=== PATIENT | female | born 1970 | race Caucasian/White ===

== ENCOUNTER 2020-06-01 23:51 | Emergency (ER) | payer SELFPAY ==
[2020-06-01 23:51] VITALS: BP 184/84; PULSE 100; RESP 18; TEMP 36.3; O2SAT 100; BMI 43.3
[2020-06-02] VITALS: BP 165/88; PULSE 104; RESP 14; O2SAT 100
[2020-06-02 00:04] VITALS: BP 145/78; PULSE 92; RESP 16; O2SAT 100
--- NOTE | 2020-06-02 00:08 | ED.VIS.GEN ---
History of Present Illness Chief Complaint: Hypertension Informant: Patient Narrative: 49 year-old female with recently diagnosed hypertension presents with concern for elevated blood pressure. States that she is becoming anxious at home because her blood pressure was elevated and she was having a slight headache. States that she was having some slightly blurred vision which is bilateral. States that is since resolved. Patient was recently started on first losartan and then lisinopril with hydrochlorothiazide following some adverse effects to the losartan. States that her blood pressures been 130 systolic in the morning so she has been only taking half of her pill. She denies any chest pain, dizziness, shortness of breath, fever, chills, cough. Past Medical History - Allergies and Home Meds Allergies/Adverse Reactions: Allergies No Known Allergies Allergy (Verified 06/01/20 23:53) Primary Care Physician: Jennifer Mercer,Out of [Primary Care Provider] - Prior records reviewed: Yes Past Medical History: - - HTN Surgical History: no surgical history Lives: With Family Smoking Status: Current every day smoker Alcohol: None Drugs: None Review of Systems General: Denies: Chills, Fever, Sweats Eyes: Reports: Blurred Vision - bilaterally. Denies: Visual changes - bilaterally, Diplopia ENT: Denies: Rhinorrhea, Sore throat Cardiovascular: Denies: Chest pain, Palpitations Respiratory: Denies: Dyspnea, Cough, Dyspnea on exertion Gastrointestinal: Denies: Abdominal pain, Nausea, Vomiting, Diarrhea, Melena, Hematochezia Genitourinary: Denies: Dysuria, Hematuria, Frequency Musculoskeletal: Denies: Back pain, Extremity Pain Skin: Denies: Rash, Wounds Neurological: Reports: Headache. Denies: Weakness, Numbness Physical Exam Vital Signs/Narrative: Vital Signs Temp Pulse Resp BP Pulse Ox 06/02/20 00:04 92 16 145/78 H 100 06/02/20 00:00 104 H 14 165/88 H 100 06/01/20 23:51 97.4 F L 100 18 184/84 H 100 Inital Vital Signs reviewed: Yes General: Well nourished, Well developed, No Acute Distress Head: Normocephalic, Atraumatic Eyes: Perrl, EOMI ENT: Moist mucous membranes, No rhinorrhea Neck: Supple, Nontender Cardiovascular: Regular rate, Regular rhythm, No murmurs Respiratory: No distress, CTA bilaterally, Chest nontender Abdomen: Soft, Nontender, Nondistended, Normal bowel sounds Back: Nontender, Normal Inspection Extremities: Nontender, No edema Skin: Normal color, No rash Neurological: Alert, Oriented x3, Cranial nerves II-XII grossly intact, Normal Strength, Normal Sensation Psychological: Normal affect, Normal Mood Diagnostic/Tx/Re-eval - Medical Decision Making Appears well and nontoxic. No focal neurologic deficit. Patient's blood pressure approximately 140 systolic in the emergency department. After extensive discussion patient will follow up with her primary care provider for titration of her medication and was advised to take her full dose hypertensives daily. Patient agreeable and discharged home in stable condition. Impression: 1. Hypertension exacerbation ED Disposition - Plan for ED Patient: Disposition: Home or Assisted Living Instructions: ED Hypertension, Established Additional Instructions: Please continue to take daily blood pressure measurements as to report this to the family practitioner. Any chest pain, shortness of breath, profound dizziness or feelings of passing out please return for reevaluation.
[2020-06-02 00:25] VITALS: BP 135/93; RESP 93; TEMP -8.8; TEMP 16; O2SAT 100
== END 2020-06-02 00:31 | disposition home or self-care (01) ==
LOC: ED 06-02 00:29
PROVIDERS: Emergency Provider Emergency Medicine; PCP Physician Assistant
DX: I10 Essential (primary) hypertension (principal); F17.200 Nicotine dependence, unspecified, uncomplicated; Z79.899 Other long term (current) drug therapy
CPT/HCPCS: 99282; J7030

== ENCOUNTER → 2020-06-30 13:57 | Outpatient (CLI) | payer SELFPAY ==
[2020-06-01 23:51] VITALS: BMI 43.3
--- NOTE | 2020-06-30 14:04 | VDLE_ITS ---
Reason For Study: RLE pain RIGHT LEFT GSV is normal. CFV is compressible, spontaneous, phasic, CFV is compressible, spontaneous, phasic, competent, and demonstrates normal competent and demonstrates normal augmentation. augmentation. FV is compressible, spontaneous, phasic, competent and demonstrates normal augmentation. POP V is compressible, spontaneous, phasic, competent and demonstrates normal augmentation. T/P Trunk is compressible. PTV is compressible. RT PerV is compressible. NON-vascular structure noted in RT pop fossa space measuring 2.67 x 1.18 cm. Procedure This is a venous duplex using B-mode, color flow and spectral Doppler. Exam performed in department. The study was technically limited. A preliminary report was called and/or faxed to Dr Ugo Rodriges@ [phone] @ 3 pm. Interpretation Summary Deep veins of the right lower extremity are patent and compressible segmentally. There is no evidence of right lower extremity deep vein thrombosis. Valvular competence appears intact within the proximal deep venous system on the right . The right great saphenous vein appears patent and compressible segmentally. A non-vascular structure is noted in the right popliteal space, measuring 2.67 cm x 1.18 cm. This probably represents a popliteal cyst. Clinical correlation is advised. Ordering Physician: Ugo Rodriges Referring Physician: Ugo Rodriges Performed By: Rianna Park, LYUDMILACS, RVT
== END ==
PROVIDERS: PCP Physician Assistant; Referring Provider Physician Assistant; Visit Provider Physician Assistant
DX: M79.604 Pain in right leg (principal)
CPT/HCPCS: 93971

== ENCOUNTER → 2020-08-01 17:22 | Outpatient (CLI) | payer MEDICARE, SELFPAY | PROVIDERS: PCP Physician Assistant; Referring Provider Physician Assistant Surgical; Visit Provider Physician Assistant Surgical | DX: U07.1 COVID-19 (principal) | CPT/HCPCS: 87635; C9803; U0005; U0003 ==

== ENCOUNTER → 2020-08-11 09:09 | Outpatient (CLI) | payer SELFPAY ==
--- NOTE | 2020-08-11 09:34 | EKG12_ITS ---
Test Reason : PREOP Blood Pressure : / mmHG Vent. Rate : 088 BPM Atrial Rate : 088 BPM P-R Int : 134 ms QRS Dur : 082 ms QT Int : 340 ms P-R-T Axes : 053 004 056 degrees QTc Int : 411 ms Normal sinus rhythm Low voltage QRS Borderline ECG Confirmed by GYPSY RUTHERFORD, MALGORZATA ([id number]), newspaper editor managing KARAN FLORES ([id number]) on 08/14/2020 9:53:01 AM Referred By: Ramsey Pryor Confirmed By:MALGORZATA BETANCUR MD
[2020-08-11 10:13] LABS: Hematocrit 38.7 % (37-47); Hemoglobin 12.1 g/dL (12.0-15.0); Mean Corp Hgb Conc 31.3 g/dL (32-36); Mean Corpuscular Hgb 26.7 pg (27.0-32.0); Mean Corpuscular Volume 85.2 fL (81-99); Mean Platelet Vol. 11.3 fl (6.2-12.0); Platelet Count 378 K/mm3 (150-450); RBC Distribution Width CV 15.7 % (11.6-14.6); RBC Distribution Width SD 48.6 fl (35.1-43.9); Red Blood Count 4.54 M/mm3 (4.2-5.4); White Blood Count 10.7 K/mm3 (4.4-11.0)
[2020-08-11 10:46] LABS: Anion Gap 6 (5-15); BUN 12 mg/dL (7-18); BUN/Creat Ratio 17.4 RATIO (10-20); Calcium,Total 9.5 mg/dL (8.5-10.1); Chloride 104 mmol/L (98-107); Creatinine, Serum 0.69 mg/dL (0.55-1.02); EST Glomerular Filtration Rate 95 mL/min (>60); Est Glom Filt Rate - Afr Amer 115 mL/min (>60); Glucose 95 mg/dL (74-106); Potassium 4.1 mmol/L (3.5-5.1); Sodium Level 137 mmol/L (136-145)
== END ==
PROVIDERS: PCP Physician Assistant; Referring Provider Physician Assistant Surgical; Visit Provider Physician Assistant Surgical
DX: Z01.818 Encounter for other preprocedural examination (principal); Z01.810 Encounter for preprocedural cardiovascular examination
CPT/HCPCS: 36415; 80048; 85027; 93005

== ENCOUNTER 2020-12-05 16:02 | Observation (INO) | payer OTHER, SELFPAY ==
[2020-12-05 16:02] VITALS: BP 184/106; PULSE 93; RESP 18; TEMP 35.9; O2SAT 99; BMI 40.8
--- NOTE | 2020-12-05 16:42 | EKG12_ITS ---
Test Reason : CP Blood Pressure : / mmHG Vent. Rate : 092 BPM Atrial Rate : 092 BPM P-R Int : 152 ms QRS Dur : 088 ms QT Int : 352 ms P-R-T Axes : 061 -01 046 degrees QTc Int : 435 ms Normal sinus rhythm Normal ECG Confirmed by GYPSY RUTHERFORD, MALGORZATA ([id number]), legal editor MICHELL IVERSON ([id number]) on 12/08/2020 1:37:20 PM Referred By: STEPHANIE/PATSY Confirmed By:MALGORZATA BETANCUR MD
--- NOTE | 2020-12-05 16:45 | EDS_ITS ---
HPI History of Present Illness Chief Complaint: Chest Pain Informant: patient Onset/Context/Timing Onset: Yesterday Activity at onset: gradual Timing: Waxes and wanes Quality: Positive for Heaviness Location: Substernal Current Severity: Gone Maximum Severity: Moderate Worsened By: Nothing Narrative Narrative: Patient present secondary to chest pressure and high blood pressure. Patient states she first noted her symptoms yesterday morning. She was having difficulty getting her blood pressure under 160/110. Waking this morning her blood pressure seem to be improved and her chest pressure was better. This afternoon her blood pressure started go back up and she started feel some heaviness in her chest again. She contacted her primary care physician who scheduled her for a stress test, however it is not scheduled until early December. Patient denies history of cardiac disease. She has never had a stress test or heart cath. [facility] Medical History High cholesterol Hypertension Home Medications lisinopril-hydrochlorothiazide 1 ea PO DAILY 06/02/20 [History Last Taken Unknown] atorvastatin 40 mg PO DAILY 12/05/20 [History Last Taken Unknown] metoprolol succinate 50 mg PO DAILY 12/05/20 [History Last Taken Unknown] Allergy/AdvReac Type Severity Reaction Status Date / Time No Known Allergies Allergy Verified 12/05/20 16:04 Social History Smoking Status: Never smoker ROS ROS ED Constitutional Constitutional ED: Denies chills or fever(s) Eyes Eyes: Denies change in vision ENT ENT ED: Denies sore throat Cardiovascular Cardiovascular: Reports chest pain Respiratory/Chest Respiratory/Chest: Reports dyspnea; Denies cough Gastrointestinal Gastrointestinal: Denies abdominal pain, diarrhea, nausea or vomiting Genitourinary Genitourinary ED: Denies dysuria Musculoskeletal Musculoskeletal: Denies back pain Integumentary Denies rash Neurologic Neurologic: Denies headache(s) or weakness Psychiatric Psychiatric: Denies anxiety or depression Endocrine Endocrinology: Denies polydipsia or polyuria Allergic/Immunologic Allergic/Immunologic ED: Denies urticaria EXAM Physical Exam Const Vital Signs: 12/05/20 16:02 12/05/20 16:15 12/05/20 17:18 Temperature 96.7 F L Temperature Source Temporal Pulse Rate 93 83 Respiratory Rate 18 18 Respiratory Effort Normal Non-Labored Blood Pressure 184/106 H 140/104 H Blood Pressure Mean 132 116 Pulse Ox 99 99 Oxygen Delivery Method Room Air Room Air Positive well nourished and well developed General Appearance ED: well developed HEENT Reports normocephalic and head/scalp atraumatic Eyes PERRL and EOMs intact bilaterally Neck supple Chest Wall inspection of chest normal and palpation of chest normal Resp normal respiratory effort and clear to auscultation bilaterally Cardio regular rate and regular rhythm GI normal to inspection, nondistended, normoactive bowel sounds Palpation: soft Back/Spine no CVA tenderness Extremity normal to inspection Neuro oriented x3 and no sensory deficits noted Sensorium / Orientation: alert Motor Exam: strength 5/5 throughout Psych mental status grossly normal Skin no rashes or lesions noted Heart Score History: Moderately Suspicious ECG: Normal Age: >45 - <65 years Risk Factors: 1 or 2 Risk Factors Troponin: </= Normal Limit Score: 3 MDM MDM MDM Narrative Medical decision making narrative: Patient is placed on welder pipe making. EKG, lab work, chest x-ray are obtained. The time of my exam blood pressure is 156/99. Lab Data Attestation: I reviewed the patient's lab results. Labs: Laboratory Results - last 24 hr 12/05/20 12/05/20 16:15 16:15 WBC 9.7 RBC 4.81 Hgb 12.9 Hct 40.0 MCV 83.2 MCH 26.8 L MCHC 32.3 RDW Std Deviation 44.1 H RDW Coeff of Codie 14.5 Plt Count 341 MPV 11.0 Immature Gran % (Auto) 0.300 Neut % (Auto) 68.1 Lymph % (Auto) 23.9 [place] % (Auto) 6.4 Eos % (Auto) 0.8 Baso % (Auto) 0.5 Absolute Neuts (auto) 6.6 Absolute Lymphs (auto) 2.31 Nucleated RBC % 0 Sodium 138 Potassium 3.5 Chloride 103 Carbon Dioxide 29.0 Anion Gap 6 BUN 13 Creatinine 0.74 Estim Creat Clear Calc 90.73 Est GFR (MDRD) Af Amer 107 Est GFR (MDRD) Non-Af 88 BUN/Creatinine Ratio 17.6 Glucose 99 Calcium 9.5 Troponin I < 0.015 Radiography Chest X-Ray - ED: 1 View, Read by ED Physician, Normal, Heart, Lungs and Mediastinum Diagnostic Testing: Radiology Impression Chest X-Ray 12/05/20 17:20 IMPRESSION: No acute cardiopulmonary process. Electronically Signed: Efrain Whaley MD at 18:09 EDT Tel , Service support , EKG Initial EKG: Attestation: I personally reviewed and interpreted this EKG as follows: Interpretation: Sinus Rhythm (Sinus at 92 with no acute ischemia.) Treatment and Re-Evaluation Comments:: Patient was given aspirin. On repeat evaluation she is resting comfortably. She has not had any significant chest heaviness while in the emergency room. Patient does have a concerning story. She is unable to get an outpatient stress test for the next 3+ weeks. I do feel it is reasonable to admit the patient observation status for cycling of enzymes and a possible stress test in the morning. After speaking with her family she is in agreement with this. I will speak with the hospitalist. Discharge Plan Triage Chief Complaint: Chest Pain ED Provider: Ivonne Mcclain Dx/Rx/DC Orders Clinical Impression: Chest pain Prescriptions: No Action lisinopril-hydrochlorothiazide 1 EACH tablet 1 ea PO DAILY RF: 0 atorvastatin 40 mg tablet 40 mg PO DAILY RF: 0 metoprolol succinate 50 mg tablet extended release 24 hr 50 mg PO DAILY RF: 0 Primary Care Provider: Ugo Rodriges Referrals: Ugo Rodriges DO [Primary Care Provider] - Disposition Disposition: Acute Care Hospital [facility] [place] [facility]
[2020-12-05 17:17] LABS: Absolute Lymphocyte Count 2.31 X10^3/uL (0.83-4.51); Absolute Neutrophil Count 6.6 X10^3/uL (2.0-7.7); Basophil# 0.05 X10^3/uL; Basophil% 0.5 % (0-1); Eosinophil# 0.08 X10^3/uL; Eosinophils% 0.8 % (0-5); Hemoglobin 12.9 g/dL (12.0-15.0); Lymphocyte # 2.31 X10^3/ul (0.83-4.51); Lymphocyte % 23.9 % (19-41); Mean Corp Hgb Conc 32.3 g/dL (32-36); Mean Corpuscular Hgb 26.8 pg (27.0-32.0); Mean Corpuscular Volume 83.2 fL (81-99); Monocyte# 0.62 X10^3/uL; Monocyte% 6.4 % (0-10); NRBC Flagged by Analyzer 0 % (0-5); Neutrophil # 6.58 X10^3/uL (2.7-7.7); Neutrophil % 68.1 % (47-70); Platelet Count 341 K/mm3 (150-450); RBC Distribution Width CV 14.5 % (11.6-14.6); RBC Distribution Width SD 44.1 fl (35.1-43.9); Red Blood Count 4.81 M/mm3 (4.2-5.4); White Blood Count 9.7 K/mm3 (4.4-11.0)
[2020-12-05] MEDS: Aspirin 81 MG TAB.CHEW 324 MG PO (17:17)
[2020-12-05 17:18] VITALS: BP 140/104; PULSE 83; RESP 18; O2SAT 99
--- NOTE | 2020-12-05 17:20 | RAD_ITS ---
STUDY: X-RAY CHEST REASON FOR EXAM: Female, 50 years old. chest pain TECHNIQUE: Chest pain COMPARISON: None. FINDINGS: Cardiomediastinal silhouette is unremarkable. Costophrenic angles are sharp. Lungs are clear. The trachea is midline. There is no pneumothorax. The bones are grossly intact. RAD/Chest 1 View (Portable) IMPRESSION: No acute cardiopulmonary process. Electronically Signed: Efrain Whaley MD at 18:09 EDT Tel , Service support ,
[2020-12-05 17:29] LABS: Anion Gap 6 (5-15); BUN 13 mg/dL (7-18); BUN/Creat Ratio 17.6 RATIO (10-20); Calcium,Total 9.5 mg/dL (8.5-10.1); Chloride 103 mmol/L (98-107); Creatinine, Serum 0.74 mg/dL (0.55-1.02); EST Glomerular Filtration Rate 88 mL/min (>60); Est Glom Filt Rate - Afr Amer 107 mL/min (>60); Estimated Creatinine Clearance 90.73 ml/min; Glucose 99 mg/dL (74-106); Potassium 3.5 mmol/L (3.5-5.1); Sodium Level 138 mmol/L (136-145)
--- NOTE | 2020-12-05 19:24 | PCM.HP.STD ---
[facility] - General General Date of Admission: 12/05/20 HPI Narrative UGO CARRENO, is a 50 F with a significant history of hypertension; and hyperlipidemia who presents to the emergency department with 3-day history of persistent chest pain. She described the chest pain as heaviness. The chest pain is substernal and it radiates to her back in between her scapula. She denies any ameliorating or aggravating factors to the chest pain. Associated with her symptoms is nausea without vomiting. She denies shortness of breath or diaphoresis. Also she had elevated blood pressure. Reportedly she could not keep her blood pressure below 160/110. However, on the morning of the day of presentation she took only half of a hydrochlorothiazide lisinopril combo because her blood pressure was 138/90. She took a full dose of her metoprolol. She denies anxiety at the time of examination. But she reports history of anxiety. [facility]CLUD[facility] Medical History High cholesterol Hypertension Home Medications lisinopril-hydrochlorothiazide 1 ea PO DAILY 06/02/20 [History Last Taken Unknown] atorvastatin 40 mg PO DAILY 12/05/20 [History Last Taken Unknown] metoprolol succinate 50 mg PO DAILY 12/05/20 [History Last Taken Unknown] Allergy/AdvReac Type Severity Reaction Status Date / Time No Known Allergies Allergy Verified 12/05/20 16:04 Family History Father Cancer Hypertension Mother Heart disease Surgical History H/O knee surgery Social History Smoking Status: Never smoker ROS Constitutional Constitutional: Denies anorexia, change in weight or chills Eyes Eyes: Denies blurry vision or change in eye color ENT HEENT: Reports headache(s); Denies abnormal hearing, dysphagia or ear pain Cardiovascular Cardiovascular: Reports chest pain; Denies dyspnea on exertion or lightheadedness Respiratory/Chest Respiratory/Chest: Denies cough, dyspnea or excessive phlegm production Gastrointestinal Gastrointestinal: Reports nausea; Denies abdominal pain or coffee ground emesis Genitourinary Genitourinary: Denies burning urination or difficulty urinating Musculoskeletal Musculoskeletal: Denies joint swelling or myalgias Neurologic Neurologic: Denies abnormal gait, confusion or disequilibrium Psychiatric Psychiatric: Denies anxiety or depression Endocrine Endocrinology: Denies change in body appearance or cold intolerance Hematologic/Lymphatic Hematologic/Lymphatic: Denies anemia or easy bleeding Vital Signs Vital Signs Vital Signs: 12/05/20 16:02 12/05/20 16:15 12/05/20 17:18 Temperature 96.7 F L Temperature Source Temporal Pulse Rate 93 83 Respiratory Rate 18 18 Respiratory Effort Normal Non-Labored Blood Pressure 184/106 H 140/104 H Blood Pressure Mean 132 116 Pulse Ox 99 99 Oxygen Delivery Method Room Air Room Air Weight Weight: 121.9 kg Body Mass Index (BMI) 40.8 Physical Exam Narrative Alert and oriented x3 Nontraumatic; normocephalic Lung clear to auscultate Heart sounds S1-S2. No murmur, gallop or rubs. Abdomen bowel sounds present soft, nontender nondistended Extremity without edema cyanosis or clubbing. Results Lab / Micro Data Result Diagrams: 12/05/20 16:15 12/05/20 16:15 Labs: Laboratory Results - last 24 hr 12/05/20 12/05/20 16:15 16:15 WBC 9.7 RBC 4.81 Hgb 12.9 Hct 40.0 MCV 83.2 MCH 26.8 L MCHC 32.3 RDW Std Deviation 44.1 H RDW Coeff of Codie 14.5 Plt Count 341 MPV 11.0 Immature Gran % (Auto) 0.300 Neut % (Auto) 68.1 Lymph % (Auto) 23.9 [place] % (Auto) 6.4 Eos % (Auto) 0.8 Baso % (Auto) 0.5 Absolute Neuts (auto) 6.6 Absolute Lymphs (auto) 2.31 Nucleated RBC % 0 Sodium 138 Potassium 3.5 Chloride 103 Carbon Dioxide 29.0 Anion Gap 6 BUN 13 Creatinine 0.74 Estim Creat Clear Calc 90.73 Est GFR (MDRD) Af Amer 107 Est GFR (MDRD) Non-Af 88 BUN/Creatinine Ratio 17.6 Glucose 99 Calcium 9.5 Troponin I < 0.015 Radiology Impression Chest X-Ray 12/05/20 17:20 IMPRESSION: No acute cardiopulmonary process. Electronically Signed: Efrain Whaley MD at 18:09 EDT Tel , Service support , Assessment & Plan Assessment/Plan (1) Chest pain: QUALIFIERS: Chest pain type: unspecified Qualified Code(s): R07.9 - Chest pain, unspecified (2) Hypertensive emergency: PLAN: Chest pain Place on a monitored bed at PCU Radiologist impression of chest x-ray: No acute cardiopulmonary process. Actual CXR image was independently visualized. No acute cardiopulmonary process was noted. Actual EKG tracing was independently visualized. EKG tracing showed normal sinus rhythm. Emergency department labs reviewed showed normal electrolytes and normal white counts. Received aspirin 324 mg at emergency department. ASA 81 mg p.o. daily ordered SL NTG 0.4 mg prn as needed for chest pain ordered Morphine as needed for pain ordered We will check lipid panel. High intensity statin continued Emergency department labs reviewed showed normal initial troponin level. Serial cardiac enzymes ordered Stat EKG as needed for chest pain Chemical stress test in the AM if the cardiac enzymes are negative. Treadmill stress test was not ordered since patient has had a history of right knee meniscus repair in July 2020. Hypertensive emergency Initial blood pressure at emergency department was 184/106. Patient reports that on the day of presentation she took only half of the lisinopril hydrochlorothiazide combo but took full dose of her metoprolol. She changed her regimen above because her blood pressure was 138/90. Educated patient to hold her blood pressure only if systolic is less than 100 or diastolic is less than 60 and to notify PCP. Review of old records show that patient was at the emergency department on 06/02/2020. Her story in regard to blood pressure is similar as on her visit on 06/02/2020. At that time she has stated that her systolic blood pressure was 130 so she was taking half of a pill. Continue home blood pressure medications of metoprolol; hydrochlorothiazide and lisinopril. As needed hydralazine ordered. Trend blood pressure and adjust blood pressure medications. Tylenol for headaches. DVT prophylaxis: Low risk in the setting of observation status. SCD ordered. Charges/Coding Visit Charges OBSV E&M: 81581 Initial observation care L3
[2020-12-05 19:25] VITALS: BP 144/100; PULSE 81; RESP 20; TEMP 36.6; O2SAT 98
--- NOTE | 2020-12-05 19:50 | EKG12_ITS ---
Test Reason : AM EKG Blood Pressure : / mmHG Vent. Rate : 064 BPM Atrial Rate : 064 BPM P-R Int : 160 ms QRS Dur : 088 ms QT Int : 414 ms P-R-T Axes : 057 006 034 degrees QTc Int : 427 ms Normal sinus rhythm Normal ECG When compared with ECG of 05-DEC-2020 20:02, MANUAL COMPARISON REQUIRED, DATA IS UNCONFIRMED Confirmed by GYPSY RUTHERFORD, MALGORZATA ([id number]), photograph editor MICHELL IVERSON ([id number]) on 12/09/2020 9:09:59 AM Referred By: SILVIA Confirmed By:MALGORZATA BETANCUR MD
[2020-12-05 20:00] VITALS: BP 143/80; PULSE 74; RESP 16; TEMP 36.7; O2SAT 100; O2SAT 98
[2020-12-05 20:03] VITALS: BMI 40.6
[2020-12-05 20:36] VITALS: PULSE 77
[2020-12-05 23:43] VITALS: PULSE 65
[2020-12-05] MEDS: Atorvastatin Calcium 40 MG Tablet PO (23:46)
[2020-12-06] VITALS (7 sets, daily range): BP systolic 105–143; BP diastolic 58–85; PULSE 63–75; RESP 16–18; TEMP 36.6–36.9; O2SAT 96–100
--- NOTE | 2020-12-06 05:55 | EKG12_ITS ---
Test Reason : CP ADMIN Blood Pressure : / mmHG Vent. Rate : 067 BPM Atrial Rate : 067 BPM P-R Int : 150 ms QRS Dur : 088 ms QT Int : 386 ms P-R-T Axes : 043 -05 027 degrees QTc Int : 407 ms Normal sinus rhythm Normal ECG When compared with ECG of 05-DEC-2020 16:12, MANUAL COMPARISON REQUIRED, DATA IS UNCONFIRMED Confirmed by GYPSY RUTHERFORD, MALGORZATA ([id number]), material expeditor MICHELL IVERSON ([id number]) on 12/09/2020 9:10:48 AM Referred By: SILVIA Confirmed By:MALGORZATA BETANCUR MD
[2020-12-06] MEDS: Lisinopril 20 MG Tablet PO (06:18)
[2020-12-06] MEDS: Aspirin E.C. 81 MG Tablet PO (06:18)
[2020-12-06 07:09] LABS: Cholesterol 233 mg/dL (200); High Density Lipoprotein 34 mg/dL; Triglycerides 83 mg/dL; Very Low Density Lipoprotein 17 mg/dL (5-40)
[2020-12-06] MEDS: hydroCHLOROthiazide 25 MG Tablet PO (10:22)
[2020-12-06] MEDS: Metoprolol(XL)Succ 50 MG Tablet PO (10:22)
--- NOTE | 2020-12-06 11:01 | STRESSREP_ITS ---
Stress Test Report Lexiscan myocardial perfusion stress test. Indication; 50-year-old female with known history of hypertension, hyperlipidemia presented to the ED at [facility] with persistent symptoms of 3 days chest pain. Underwent evaluation by Lexiscan sestamibi marker perfusion study. Stress protocol: Resting EKG demonstrates. Normal sinus rhythm. 0.4 mg of regadenoson was infused per usual protocol followed by rapid intravenous saline flush injection continuous EKG monitoring was performed. The maximum heart rate attained was 115 bpm which was 68% of maximum predicted heart . Stress EKG showed[, no significant change from the resting EKG, with maximum heart rate of 115 bpm. Arrhythmia: No arrhythmia demonstrated Symptoms: Patient had no symptoms of chest pain Blood pressure at rest: 136/76 mmHg blood pressure at the end of stress: 140/82 mmHg Myocardial perfusion protocol. 14.8 mCi of Technetium 99m Sestamibi was injected at rest. [ 0.4 mg ]of Regadenoson was infused per usual protocol peak infusion[45 mCi ]of Technetium 99m sestamibi was injected. Stress images were obtained stress and rest images were reconstructed and compared in the short axis vertical and horizontal long axis. Gated images were also obtained Perfusion SPECT analysis: Review of the images demonstrate normal uptake of sestamibi at rest, post stress images demonstrate similar uptake of sestamibi to the resting images, h omogeneous tracer uptake With no evidence of reversible myocardial ischemia. Gated SPECT analysis: The gated ejection fraction is 66%. Normal left ventricular wall motion. Normal LV systolic function. Conclusion: Negative Lexiscan sestamibi myocardial perfusion study for reversible myocardial ischemia Normal LV systolic function Gerber Head MD,FACC,[facility]
--- NOTE | 2020-12-06 11:31 | PCM.DC ---
Discharge Instructions Diet Discharge Diet: Low fat / Low cholesterol and 2000 mg Sodium Diet Activity Discharge Activity: Return to Normal Activity Follow Up Care Test Results: Test results from this visit will be discussed in further detail at your follow-up appointment, if applicable. Discharge Plan Admission Admit Date/Time: 12/05/20 19:23 Primary Reason for Your Visit: Chest pain Attending Provider: Chelita Motley Primary Care Provider: Ugo Rodriges Instructions Patient Instructions: ED Chest Pain, Noncardiac Additional Instructions / Restrictions: Continue to follow a low-salt, low-fat diet. Continue to remain active. Your stress test was negative. This means your chest pain was not likely to be related to the heart. Follow-up with your primary care doctor within 2 weeks. Discharge Orders/Prescriptions Prescriptions: New atorvastatin 80 mg tablet 80 mg PO DAILY Qty: 30 RF: 0 Continued metoprolol succinate 50 mg tablet extended release 24 hr 50 mg PO DAILY RF: 0 lisinopril-hydrochlorothiazide 20-25 mg tablet 1 tab PO DAILY RF: 0 Discontinued atorvastatin 40 mg tablet 40 mg PO DAILY RF: 0 Referrals / Follow Up: Ugo Rodriges, [Primary Care Provider] - Within 2 Weeks (Please call to schedule follow up appointment) Disposition Disposition (needs filled in before D/C Order can be placed): Home, self care
--- NOTE | 2020-12-06 11:32 | PCM.DC.SUM ---
Providers Date of Admission: 12/05/20 Primary Care Physician: Dr. Ugo Rodriges, DO Reason For Visit: CHEST PAIN Diagnosis Discharge Diagnosis (1) Chest pain: Status: Resolved Code(s): R07.9 - Chest pain, unspecified Qualifiers: Chest pain type: unspecified Qualified Code(s): R07.9 - Chest pain, unspecified (2) Hypertensive emergency: Status: Acute Code(s): I16.1 - Hypertensive emergency Medications at Discharge Home Medications lisinopril-hydrochlorothiazide 1 tab PO DAILY 12/05/20 metoprolol succinate 50 mg PO DAILY 12/05/20 atorvastatin 80 mg PO DAILY #30 tab 12/06/20 Hospital Course Operations None Procedures Stress test Summary of Care Provided Minutes Spent on Discharge: 40 Hospital Course: 50 y/o female with PMHx of hypertension and hyperlipidemia comes in with a 3-day history of chest pain that was substernal, described as heaviness, that radiated to her back and between his scapula. This was associated with nausea but no vomiting. Her blood pressure was elevated because she took half of her hydrochlorothiazide?lisinopril combination pill. [facility], monitored on telemetry. EKG was unremarkable. She underwent nuclear stress test that was unremarkable. Patient was to follow-up with primary care doctor within 1 to 2 weeks. She was advised to take all her medications as prescribed. Physical Exam Narrative Physical exam: General: Alert, Oriented x3, Cooperative, No apparent distress, Well developed HEENT: Atraumatic Oral: Moist Mucosa Neck: Supple Lungs: Clear to auscultation Cardiovascular: HS I+II, regular, no murmurs Abdomen: Bowel Sounds Present, Soft, Non Tender Extremities: No edema Weight / BMI Weight Weight: 121.7 kg Body Mass Index (BMI) 40.6 ABG / Lab / Microbiology Data Result Diagrams: 12/05/20 16:15 12/05/20 16:15 Laboratory: Laboratory Results - last 24 hr 12/05/20 12/05/20 12/05/20 16:15 16:15 19:59 WBC 9.7 RBC 4.81 Hgb 12.9 Hct 40.0 MCV 83.2 MCH 26.8 L MCHC 32.3 RDW Std Deviation 44.1 H RDW Coeff of Codie 14.5 Plt Count 341 MPV 11.0 Immature Gran % (Auto) 0.300 Neut % (Auto) 68.1 Lymph % (Auto) 23.9 Butler % (Auto) 6.4 Eos % (Auto) 0.8 Baso % (Auto) 0.5 Absolute Neuts (auto) 6.6 Absolute Lymphs (auto) 2.31 Nucleated RBC % 0 Sodium 138 Potassium 3.5 Chloride 103 Carbon Dioxide 29.0 Anion Gap 6 BUN 13 Creatinine 0.74 Estim Creat Clear Calc 90.73 Est GFR (MDRD) Af Amer 107 Est GFR (MDRD) Non-Af 88 BUN/Creatinine Ratio 17.6 Glucose 99 Calcium 9.5 Troponin I < 0.015 < 0.015 Triglycerides Cholesterol LDL Cholesterol VLDL Cholesterol HDL Cholesterol 12/05/20 12/06/20 22:47 05:16 WBC RBC Hgb Hct MCV MCH MCHC RDW Std Deviation RDW Coeff of Codie Plt Count MPV Immature Gran % (Auto) Neut % (Auto) Lymph % (Auto) Butler % (Auto) Eos % (Auto) Baso % (Auto) Absolute Neuts (auto) Absolute Lymphs (auto) Nucleated RBC % Sodium Potassium Chloride Carbon Dioxide Anion Gap BUN Creatinine Estim Creat Clear Calc Est GFR (MDRD) Af Amer Est GFR (MDRD) Non-Af BUN/Creatinine Ratio Glucose Calcium Troponin I < 0.015 Triglycerides 83 Cholesterol 233 H LDL Cholesterol 182 H VLDL Cholesterol 17 HDL Cholesterol 34 L Radiography Diagnostic Testing: Radiology Impression Chest X-Ray 12/05/20 17:20 IMPRESSION: No acute cardiopulmonary process. Electronically Signed: Efrain Whaley MD at 18:09 EDT Tel , Service support , D/C Instructions Discharge Diet: Low fat / Low cholesterol and 2000 mg Sodium Diet Meaningful Use Info Meaningful Use Diagnoses (Choose all that apply): None applicable Discharge Plan Admission Admit Date/Time: 12/05/20 19:23 Primary Reason for Your Visit: Chest pain Attending Provider: Chelita Motley Primary Care Provider: Ugo Rodriges Instructions Patient Instructions: ED Chest Pain, Noncardiac Additional Instructions / Restrictions: Continue to follow a low-salt, low-fat diet. Continue to remain active. Your stress test was negative. This means your chest pain was not likely to be related to the heart. Follow-up with your primary care doctor within 2 weeks. Discharge Orders/Prescriptions Prescriptions: New atorvastatin 80 mg tablet 80 mg PO DAILY Qty: 30 RF: 0 Continued metoprolol succinate 50 mg tablet extended release 24 hr 50 mg PO DAILY RF: 0 lisinopril-hydrochlorothiazide 20-25 mg tablet 1 tab PO DAILY RF: 0 Discontinued atorvastatin 40 mg tablet 40 mg PO DAILY RF: 0 Referrals / Follow Up: Ugo Rodriges DO [Primary Care Provider] - Within 2 Weeks (Please call to schedule follow up appointment) Disposition Disposition (needs filled in before D/C Order can be placed): Home, self care Charges/Coding Visit Charges OBSV E&M: 93063 Observation care discharge
== END 2020-12-06 11:25 | disposition home or self-care (01) ==
LOC: ED 19:12 → PCU 19:40
PROVIDERS: Admitting Provider Hospitalist; Emergency Provider Emergency Medicine; PCP Physician Assistant; Visit Provider Internal Medicine
DX: R07.89 Other chest pain (principal); I16.1 Hypertensive emergency; I10 Essential (primary) hypertension; E78.5 Hyperlipidemia, unspecified; Z79.899 Other long term (current) drug therapy
CPT/HCPCS: 36415; 71045; 78452; 80048; 80061; 84484; 85025; 93005; 93017; 99218; 99285; A9500; A4216; G0378; J2785

== ENCOUNTER 2021-07-29 11:32 | Outpatient (CLI) | payer SELFPAY ==
[2021-07-29 12:38] LABS: BUN 17 mg/dL (7-18); Creatinine, Serum 0.75 mg/dL (0.55-1.02); EST Glomerular Filtration Rate 87 mL/min (>60); Est Glom Filt Rate - Afr Amer 105 mL/min (>60)
== END 2021-07-29 23:59 | disposition short-term general hospital (02) ==
PROVIDERS: PCP Physician Assistant; Referring Provider Otolaryngology; Visit Provider Otolaryngology
DX: H90.A21 Sensorineural hearing loss, unilateral, right ear, with restricted hearing on the contralateral side (principal)
CPT/HCPCS: 36415; 82565; 84520

== ENCOUNTER 2021-08-04 15:23 | Outpatient (CLI) | payer SELFPAY ==
--- NOTE | 2021-08-04 16:00 | MRI_ITS ---
STUDY: MRI BRAIN WITH AND WITHOUT CONTRAST (ATTENTION INTERNAL AUDITORY CANALS - I.A.C.''s) REASON FOR EXAM: Female, 51 years old. HEARING LOSS RIGHT TECHNIQUE: Standardized multiplanar fat and water weighted pulse sequences were obtained. IV 25ml Dotarem was administered for the contrast portion of the examination. COMPARISON: None. FINDINGS: Mild bilateral mastoiditis. Normal bilateral internal auditory canals. There is no demonstrated intracanalicular or cisternal vestibular schwannoma (acoustic neuroma). There is no enhancement of the bilateral VIIth or VIIIth cranial nerves. Normal bilateral cochlea, vestibules and semicircular canals. Normal size of the ventricles and extra-axial spaces for the patient''s age. Normal white matter tracts of the supratentorial brain. There is no evidence for recent intracranial ischemia or other cause of cytotoxic edema on diffusion weighted imaging (DWI). Normal bilateral basal ganglia. Normal thalami. Normal flow voids within the major intracranial circulation suggesting patency by spin echo criteria. Normal venous enhancement. There is no enhancing intra-axial or extra-axial abnormality. There is no extra-axial fluid accumulation. Normal sella turcica, pituitary gland, infundibular stalk, optic chiasm and hypothalamus. Normal tectal plate and pineal gland. Normal midbrain, dione and medulla. Normal cerebellum. Normal basal cisterns. No demonstrated orbital abnormality, within the constraints of a routine brain study. Normal visualized paranasal sinuses. Normal calvarium and skull base. Normal visualized soft tissue structures. Normal visualized upper cervical spine. MRI/Brain W/WO Contrast IMPRESSION: Normal unenhanced and enhanced MRI of the bilateral internal auditory canals (I.A.C''s). Mild bilateral mastoiditis. Electronically Signed: Tre Esquivel MD at 16:56 EST ,
== END 2021-08-04 23:59 | disposition home or self-care (01) ==
PROVIDERS: PCP Physician Assistant; Visit Provider Otolaryngology
DX: H90.A21 Sensorineural hearing loss, unilateral, right ear, with restricted hearing on the contralateral side (principal)
CPT/HCPCS: 70553; A9575